=== PATIENT | male | born 1990 | race Caucasian/White ===

== ENCOUNTER 2022-05-07 19:23 | Emergency (ER) | payer SELFPAY ==
[2022-05-07] MEDS ORDERED: Lidocaine 1% 30 ML SDV INJECT ONE (19:37)
[2022-05-07] MEDS ORDERED: Diphtheria,Pertussis(Acell),Tetanus Vaccine 0.5 ML Syringe IM ONE (19:39)
== END 2022-05-07 20:55 | disposition home or self-care (01) ==
LOC: VM.ED 19:23
DX: S01.01XA Laceration without foreign body of scalp, initial encounter (principal); Z23 Encounter for immunization; V00.131A Fall from skateboard, initial encounter; Y93.51 Activity, roller skating (inline) and skateboarding
CPT/HCPCS: 12002; 12014; 70450; 72125; 90471; 90715; 99283; 99283-25; J3490

== ENCOUNTER 2024-08-28 01:49 | Emergency (ER) | payer SELFPAY ==
[2024-08-28 02:22] LABS: BASOPHILS ABSOLUTE AUTO 0.0 x10^3/uL (0.0-0.2); BASOPHILS PERCENT AUTO 0.2 % (0.2-1.2); EOSINOPHILS ABSOLUTE AUTO 0.1 x10^3/uL (0.0-0.5); EOSINOPHILS PERCENT AUTO 1.0 % (0.0-4.0); IMMATURE GRAN ABSOLUTE AUTO 0.02 x10^3/uL (0.00-0.07); IMMATURE GRAN PERCENT AUTO 0.20 % (0.00-0.43); LYMPHOCYTES ABSOLUTE AUTO 3.5 x10^3/uL (1.0-4.8); LYMPHOCYTES PERCENT AUTO 42.0 % (25.0-50.0); MONOCYTES ABSOLUTE AUTO 0.6 x10^3/uL (0.0-0.8); MONOCYTES PERCENT AUTO 6.7 % (2.0-11.0); NEUTROPHILS ABSOLUTE AUTO 4.1 x10^3/uL (1.8-7.7); NEUTROPHILS PERCENT AUTO 49.9 % (50.0-80.0); PLATELET COUNT,PLT 264 x10^3/uL (130-400); RED BLOOD CELL COUNT 4.00 x10^6/uL (4.5-6.0); WHITE BLOOD CELL COUNT,WBC 8.3 x10^3/uL (4.0-10.0)
[2024-08-28] MEDS: Lactated Ringers 1,000 ML IV ONE (02:26)
[2024-08-28 02:40] LABS: A/G RATIO 1.09; ALANINE AMINOTRANSFERASE,ALT 12.0 U/L (16-63); ASPARTATE AMNIOTRANSFERASE,AST 26.0 U/L (15-37); BILIRUBIN TOTAL 1.1 mg/dL (0.2-1.0); BLOOD UREA NITROGEN,BUN 21.0 mg/dL (7-18); CARBON DIOXIDE,CO2 25.0 mmol/L (21-32); CHLORIDE,CL 103.0 mmol/L (98-107); CREATININE 1.0 mg/dL (0.70-1.30); EST CRCL DRUG DOSING (CG) 103.39 mL/min; ESTIMATED GFR 101.0 mL/min (>=60); ETHANOL BLOOD MEDICAL 249.0 mg/dL (0-3); GLUCOSE RANDOM 105.0 mg/dL (70-99); POTASSIUM,K 3.9 mmol/L (3.5-5.1); PROTEIN TOTAL,TP 6.9 g/dL (6.4-8.2); SODIUM,NA 140.0 mmol/L (136-145)
[2024-08-28] MEDS: Folic Acid 50 MG/10 ML Bulk Vial IV SCH (03:05)
[2024-08-28] MEDS: Lactated Ringers 1,000 ML IV SCH (03:06)
[2024-08-28] MEDS: Thiamine 200 MG/2 ML MDV IV ONE (03:06)
[2024-08-28 05:07] LABS: AMPHETAMINES SCREEN, URINE NEGATIVE (NEGATIVE)
[2024-08-28 05:08] LABS: BUPRENORPHINE SCREEN,URINE NEGATIVE (NEGATIVE); COCAINE METABOLITES,URINE NEGATIVE (NEGATIVE); METHADONE SCREEN, URINE NEGATIVE (NEGATIVE); METHAMPHETAMINE SCREEN, URINE POSITIVE (NEGATIVE); OXYCODONE SCREEN,URINE NEGATIVE (NEGATIVE); PCP SCREEN,URINE NEGATIVE (NEGATIVE); THC SCREEN,URINE 50 NG/ML POSITIVE (NEGATIVE)
== END 2024-08-28 09:41 | disposition home or self-care (01) ==
LOC: VM.ED 01:49
DX: F10.120 Alcohol abuse with intoxication, uncomplicated (principal); F19.10 Other psychoactive substance abuse, uncomplicated; Z88.5 Allergy status to narcotic agent; Y90.8 Blood alcohol level of 240 mg/100 ml or more
CPT/HCPCS: 36415; 80053; 80305-QW; 80307; 83735; 85025; 96365; 96366; 99284; 99285-25; J3411; J3490; J7120

== ENCOUNTER 2024-11-05 22:33 | Emergency (ER) | payer SELFPAY | END 2024-11-05 22:58 | LOC: VM.ED 22:33 | DX: S21.139A Puncture wound without foreign body of unspecified front wall of thorax without penetration into thoracic cavity, initial encounter (principal); F10.129 Alcohol abuse with intoxication, unspecified; T75.4XXA Electrocution, initial encounter | CPT/HCPCS: 93005; 93010; 99283; 99284 ==